=== PATIENT | female | born 1960 | race Caucasian/White ===

== ENCOUNTER 2017-01-27 22:13 | Observation (INO) | payer OTHER ==
--- NOTE | 2017-01-27 22:21 | EDPHY ---
H & P Stated Complaint: racing heart, palpitations x few hours HPI/ROS: HPI CHIEF COMPLAINT: Palpitations, racing heart since 730 this evening or 3 hours ago. HISTORY OF PRESENT ILLNESS: This patient is a 56-year-old female she is otherwise healthy she does not take any daily medications and she has no cardiovascular disease she presents to the emergency room with palpitations since 730 this evening. Patient reports to me that 7 there is evening she was not doing anything particular but resting and felt her heart rate become irregular. She states it was very irregular and is still ongoing. She does not report that was very fast she thinks the highest that she saw was 120s. But mainly in the 60s 70s. She denies shortness of breath or chest pain. Denies lightheadedness. Denies nausea, vomiting, neck pain, jaw pain, arm pain , focal weakness. 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 She usually is able to cough and have it go way. Past Medical History: Denies significant medical history. Does not take any daily medications. Past Surgical History: No recent surgery. But has previously had bilateral shoulder surgery. Social History: She denies daily drugs alcohol tobacco. Occasionally drinks wine. She has a chiropractor. She works out every day. Family History: She denies significant cardiovascular disease in her family. ROS REVIEW OF SYSTEMS: A comprehensive 10 point review of systems is otherwise negative aside from elements mentioned in the history of present illness. Exam Constitutional appears well nontoxic triage nursing summary reviewed, vital signs reviewed, awake/alert. Vital signs noted at triage. Eyes normal conjunctivae and sclera, EOMI, PERRLA. HENT normal inspection, atraumatic, moist mucus membranes, no epistaxis, neck supple/ no meningismus, no raccoon eyes. Respiratory clear to auscultation bilaterally, normal breath sounds, no respiratory distress, no wheezing. Cardiovascular she has an irregular, irregular heart rate rather fast, no murmur, no edema, distal pulses normal. Gastrointestinal soft, non-tender, no rebound, no guarding, normal bowel sounds, no distension, no pulsatile mass. Genitourinary no CVA tenderness. Musculoskeletal no midline vertebral tenderness, full range of motion, no calf swelling, no tenderness of extremities, no meningismus, good pulses, neurovascularly intact. Skin pink, warm, & dry, no rash, skin atraumatic. Neurologic awake, alert and oriented x 3, AAOx3, moves all 4 extremities equally, motor intact, sensory intact, CN II-XII intact, normal cerebellar, normal vision, normal speech. Psychiatric normal mood/affect. Heme/Lymph/Immune no lymphadenopathy. Differential diagnosis includes but is not limited to: Cardiac arrhythmia, AFib with RVR, atrial flutter, SVT, AVRNT, it V-tach, VFib, ACS, atypical chest pain, pneumothorax, pneumonia, pulmonary embolism, aortic dissection, congestive heart failure, tumor, musculoskeletal pain, esophageal pain, GERD, peptic ulcer disease, pancreatitis Medical Decision Making: Plan for this patient IV establishment with IV fluid bolus, obtain EKG, full monitor and storage bin tender, EKG, chest x-ray, check electrolytes including Mag and TSH. Re-evaluation: EKG interpretation by me on record in [employer] system. Impression time of EKG 2230 this is AFib rate of 133. Her AFib with RVR, borderline T-wave abnormality seen in the inferior leads this may be rate related. 2242: I did try vagal maneuver at bedside with the patient however this did not cause any reduction of her heart rate in fact her heart rate went to 170s when we were doing this. Currently this time she denies chest pain. 2338: I spoke with the hospitalist service Dr. Burrows he agrees to admit this patient. Patient be admitted to PCU on IV diltiazem drip. I have ordered her additionally some Ativan and she feels anxious. 0.5 mg IV additionally I have ordered her Lovenox 1 milligram/kilogram for anticoagulation the setting of AFib. She is hemodynamically stable she is not hypotensive. She has no chest pain. EKG interpretation by me on record in [employer] system. Impression time of EKG 05/26/2054, AFib rate of 120. Source: Patient - Personal History Current Tetanus/Diphtheria Vaccine: Yes - Medical/Surgical History Hx Asthma: No Hx Chronic Respiratory Disease: No Hx Diabetes: No Hx Cardiac Disease: No Hx Renal Disease: No Hx Cirrhosis: No Hx Alcoholism: No Hx HIV/AIDS: No Hx Splenectomy or Spleen Trauma: No Other PMH: SHOULDER SURGERY L/R. fx pelvis - Social History Smoking Status: Never smoked Constitutional: Initial Vital Signs Temperature (C) 36.6 C 01/27/17 22:15 Heart Rate 105 H 01/27/17 22:15 Respiratory Rate 18 01/27/17 22:15 Blood Pressure 116/48 L 01/27/17 22:15 O2 Sat (%) 96 01/27/17 22:15 O2 Delivery Mode Room Air Allergies/Adverse Reactions: BANDAID ADHESIVE Allergy (Uncoded 01/27/17 22:18) Home Medications: Medication Instructions Recorded NK [No Known Home Meds] 01/27/17 Medical Decision Making - Diagnostics Imaging Results: Imaging Impressions Chest X-Ray 01/27/17 22:26 Impression: No acute findings in the chest. - Data Points Laboratory Results: Laboratory Results 01/27/17 22:42 01/27/17 22:42 01/27/17 01/27/17 01/27/17 22:42 22:42 22:42 WBC 5.85 10^3/uL 10^3/uL (3.80-9.50) RBC 4.23 10^6/uL 10^6/uL (4.18-5.33) Hgb 15.0 g/dL g/dL (12.6-16.3) Hct 41.4 % % (38.0-47.0) MCV 97.9 fL fL (81.5-99.8) MCH 35.5 pg H pg (27.9-34.1) MCHC 36.2 g/dL g/dL (32.4-36.7) RDW 12.3 % % (11.5-15.2) Plt Count 221 10^3/uL 10^3/uL (150-400) MPV 9.0 fL fL (8.7-11.7) Neut % (Auto) 51.1 % % (39.3-74.2) Lymph % (Auto) 37.6 % % (15.0-45.0) [place] % (Auto) 9.7 % % (4.5-13.0) Eos % (Auto) 0.7 % % (0.6-7.6) Baso % (Auto) 0.7 % % (0.3-1.7) Nucleat RBC Rel Count 0.0 % % (0.0-0.2) Absolute Neuts (auto) 2.99 10^3/uL 10^3/uL (1.70-6.50) Absolute Lymphs (auto) 2.20 10^3/uL 10^3/uL (1.00-3.00) Absolute Monos (auto) 0.57 10^3/uL 10^3/uL (0.30-0.80) Absolute Eos (auto) 0.04 10^3/uL 10^3/uL (0.03-0.40) Absolute Basos (auto) 0.04 10^3/uL 10^3/uL (0.02-0.10) Absolute Nucleated RBC 0.00 10^3/uL 10^3/uL (0-0.01) Immature Gran % 0.2 % % (0.0-1.1) Immature Gran # 0.01 10^3/uL 10^3/uL (0.00-0.10) PT 13.1 SEC SEC (12.0-15.0) INR 1.00 (0.83-1.16) APTT 25.7 SEC SEC (23.0-38.0) D-Dimer < 0.27 ug/mLFEU ug/mLFEU (0.00-0.50) Sodium 140 mEq/L mEq/L (134-144) Potassium 3.8 mEq/L mEq/L (3.5-5.2) Chloride 105 mEq/L mEq/L (97-110) Carbon Dioxide 22 mEq/l mEq/l (22-31) Anion Gap 13 mEq/L mEq/L (8-16) BUN 17 mg/dL mg/dL (7-23) Creatinine 0.7 mg/dL mg/dL (0.6-1.0) Estimated GFR > 60 Glucose 81 mg/dL mg/dL (70-100) Calcium 9.7 mg/dL mg/dL (8.5-10.4) Magnesium 2.1 mg/dL mg/dL (1.6-2.3) Total Bilirubin 0.3 mg/dL mg/dL (0.1-1.4) Conjugated Bilirubin 0.0 mg/dL mg/dL (0.0-0.5) Unconjugated Bilirubin 0.3 mg/dL mg/dL (0.0-1.1) AST 29 IU/L IU/L (14-46) ALT 33 IU/L IU/L (9-52) Alkaline Phosphatase 46 IU/L IU/L (38-126) Troponin I < 0.012 ng/mL ng/mL (0.000-0.034) NT-Pro-B Natriuret Pep 117 pg/mL pg/mL (0-125) Total Protein 6.6 g/dL g/dL (6.3-8.2) Albumin 4.4 g/dL g/dL (3.5-5.0) TSH 1.850 uIU/mL uIU/mL (0.465-4.680) Medications Given: Discontinued Medications Diltiazem HCl (Cardizem 25 Mg/5 Ml Vial) 15 mg IVP EDNOW ONE Stop: 01/27/17 22:42 Last Admin: 01/27/17 22:46 Dose: 15 mg Enoxaparin Sodium (Lovenox) 60 mg SC EDNOW ONE Stop: 01/27/17 23:39 Last Admin: 01/28/17 00:20 Dose: 60 mg Sodium Chloride (Ns) 1,000 mls @ 0 mls/hr IV EDNOW ONE; Wide Open PRN Reason: Protocol Stop: 01/27/17 22:27 Last Admin: 01/27/17 22:46 Dose: 1,000 mls Diltiazem/Dextrose (Diltiazem 125mg/125ml (Premix)) 125 mls @ 0 mls/hr IV CONT PAVEL; Per Protocol PRN Reason: Protocol Stop: 07/26/17 22:44 Last Admin: 01/27/17 23:32 Dose: 125 mls Lorazepam (Ativan Injection) 0.5 mg IVP EDNOW ONE Stop: 01/27/17 23:39 Last Admin: 01/27/17 23:48 Dose: 0.5 mg Departure - Departure Disposition: [facility] Clinical Impression: Atrial fibrillation Qualifiers: Atrial fibrillation type: paroxysmal Qualified Code(s): I48.0 - Paroxysmal atrial fibrillation Condition: Fair
[2017-01-27] MEDS ORDERED: NS 1,000 ML IV ONE (22:26)
--- NOTE | 2017-01-27 22:33 | CPEKG ---
Heart Rate: 133 RR Interval: 451 QRSD Interval: 74 QT Interval: 320 QTC Interval: 476 QRS [place]: 59 T Wave [place]: -28 EKG Severity - ABNORMAL ECG - EKG Impression: ATRIAL FIBRILLATION EKG Impression: BORDERLINE T ABNORMALITIES, INFERIOR LEADS Electronically Signed By: Oscar Chanel 28-Jan-2017 06:23:00
[2017-01-27] MEDS ORDERED: DILTIAZEM 25 MG/5 ML VIAL IVP ONE (22:41)
[2017-01-27] MEDS ORDERED: DILTIAZEM 125 MG in D5W 125 ML IV SCH (22:45)
[2017-01-27 22:47] LABS: % IMMATURE GRANULYOCYTES 0.2 % (0.0-1.1); ABSOLUTE IMMATURE GRANULOCYTES 0.01 10^3/uL (0.00-0.10); ADD DIFF? NO; ADD MORPH? NO; ADD SCAN? NO; ATYPICAL LYMPHOCYTE FLAG 0 (0-99); FRAGMENT RBC FLAG 0 (0-99); HEMATOCRIT 41.4 % (38.0-47.0); LEFT SHIFT FLG 0 (0-99); LIPEMIA HEMOLYSIS FLAG 90 (0-99); MEAN CELL HEMOGLOBIN 35.5 pg (27.9-34.1); MEAN CELL HEMOGLOBIN CONCENTR. 36.2 g/dL (32.4-36.7); MEAN CELL VOLUME 97.9 fL (81.5-99.8); PLATELET CLUMPS FLAG 0 (0-99); PLATELET COUNT 221 10^3/uL (150-400); RED BLOOD CELL COUNT 4.23 10^6/uL (4.18-5.33); RED CELL DISTRIBUTION WIDTH 12.3 % (11.5-15.2)
[2017-01-27 22:55] LABS: PROTIME(PATIENT) 13.1 SEC (12.0-15.0)
[2017-01-27 22:56] LABS: APTT 25.7 SEC (23.0-38.0)
[2017-01-27 23:16] LABS: ALANINE AMINOTRANSFERASE 33 IU/L (9-52); ALBUMIN 4.4 g/dL (3.5-5.0); ALKALINE PHOSPHATASE 46 IU/L (38-126); ANION GAP 13 mEq/L (8-16); ASPARTATE AMINOTRANSFERASE 29 IU/L (14-46); BILIRUBIN,TOTAL 0.3 mg/dL (0.1-1.4); BILIRUBIN-UNCONJUGATED 0.3 mg/dL (0.0-1.1); CALCIUM 9.7 mg/dL (8.5-10.4); CARBON DIOXIDE 22 mEq/l (22-31); CHLORIDE 105 mEq/L (97-110); CREATININE 0.7 mg/dL (0.6-1.0); GLOMERULAR FILTRATION RATE > 60; GLUCOSE 81 mg/dL (70-100); MAGNESIUM 2.1 mg/dL (1.6-2.3); POTASSIUM 3.8 mEq/L (3.5-5.2); SODIUM 140 mEq/L (134-144); TOTAL PROTEIN 6.6 g/dL (6.3-8.2)
[2017-01-27 23:27] LABS: TROPONIN I < 0.012 ng/mL (0.000-0.034)
[2017-01-27] MEDS ORDERED: DILTIAZEM HCL/D5W 125 ML IV SCH ×2 (23:30→23:45)
[2017-01-27] MEDS ORDERED: ONDANSETRON 4 MG/2 ML VIAL IVP PRN (23:38)
[2017-01-27] MEDS ORDERED: ENOXAPARIN 60 MG/0.6 ML SYR SC ONE (23:38)
[2017-01-27] MEDS ORDERED: ONDANSETRON DISINTEGRATING 4 MG TAB PO PRN (23:38)
[2017-01-27] MEDS ORDERED: LORazepam 2 MG/ML INJ IVP ONE (23:38)
[2017-01-27] MEDS ORDERED: ACETAMINOPHEN 325 MG TAB PO PRN (23:38)
--- NOTE | 2017-01-27 23:58 | CPEKG ---
Heart Rate: 120 RR Interval: 500 QRSD Interval: 76 QT Interval: 332 QTC Interval: 470 QRS [place]: 59 T Wave [place]: 37 EKG Severity - ABNORMAL ECG - EKG Impression: ATRIAL FIBRILLATION Electronically Signed By: Oscar Chanel 28-Jan-2017 06:23:00
--- NOTE | 2017-01-28 01:22 | PDGENHP ---
History and Physical - Chief Complaint Palpitations - History of Present Illness 56 yo F w/ no PMHx presents with palpitations. Patient states that starting around 7 PM she began to notice palpitations, elevated HR, and chest discomfort. This has persisted until the time of my evaluation and patient was noted to be in AF w/ RVR upon arrival. She describes experiencing isolated palpitations in the past for a few beats at a time but never in a sustained fashion. She has been under a lot of stress for the last several months but denies recent illness, shortness of breath, or excessive ETOH intake. She has a significant family hx of AF w/ 4 family members having the same diagnosis. History Information - Allergies/Home Medication List Allergies/Adverse Reactions: BANDAID ADHESIVE Allergy (Uncoded 01/27/17 22:18) Home Medications: NK [No Known Home Meds] 01/27/17 [Last Taken Unknown] I have personally reviewed and updated: family history, medical history - Past Medical History no pertinent PMH - Family History Additional family history: Multiple family members with AF. Father w/ VT - Social History Smoking Status: Never smoked Review of Systems Review of Systems: ROS: 10pt was reviewed & negative except for what was stated in HPI & below Physical Exam Physical Exam: Temp Pulse Resp BP Pulse Ox 36.8 C 110 H 15 93/70 L 97 01/28/17 00:29 01/28/17 00:29 01/28/17 00:29 01/28/17 00:29 01/28/17 00:29 Constitutional: no apparent distress, not in pain Eyes: PERRL, EOMI Ears, Nose, Mouth, Throat: moist mucous membranes, no oral mucosal ulcers Cardiovascular: no murmur, rub, or gallop, irregularly irregular, tachycardia Respiratory: no respiratory distress, no rales or rhonchi Gastrointestinal: normoactive bowel sounds, soft, non-tender abdomen Skin: warm, normal color Musculoskeletal: full muscle strength, no muscle tenderness Neurologic: AAOx3, CN II-XII Intact Lab Data & Imaging Review 01/27/17 22:42 01/27/17 22:42 WBC 5.85 10^3/uL (3.80-9.50) 01/27/17 22:42 RBC 4.23 10^6/uL (4.18-5.33) 01/27/17 22:42 Hgb 15.0 g/dL (12.6-16.3) 01/27/17 22:42 Hct 41.4 % (38.0-47.0) 01/27/17 22:42 MCV 97.9 fL (81.5-99.8) 01/27/17 22:42 MCH 35.5 pg (27.9-34.1) H 01/27/17 22:42 MCHC 36.2 g/dL (32.4-36.7) 01/27/17 22:42 RDW 12.3 % (11.5-15.2) 01/27/17 22:42 Plt Count 221 10^3/uL (150-400) 01/27/17 22:42 MPV 9.0 fL (8.7-11.7) 01/27/17 22:42 Neut % (Auto) 51.1 % (39.3-74.2) 01/27/17 22:42 Lymph % (Auto) 37.6 % (15.0-45.0) 01/27/17 22:42 [place] % (Auto) 9.7 % (4.5-13.0) 01/27/17 22:42 Eos % (Auto) 0.7 % (0.6-7.6) 01/27/17 22:42 Baso % (Auto) 0.7 % (0.3-1.7) 01/27/17 22:42 Nucleat RBC Rel Count 0.0 % (0.0-0.2) 01/27/17 22:42 Absolute Neuts (auto) 2.99 10^3/uL (1.70-6.50) 01/27/17 22:42 Absolute Lymphs (auto) 2.20 10^3/uL (1.00-3.00) 01/27/17 22:42 Absolute Monos (auto) 0.57 10^3/uL (0.30-0.80) 01/27/17 22:42 Absolute Eos (auto) 0.04 10^3/uL (0.03-0.40) 01/27/17 22:42 Absolute Basos (auto) 0.04 10^3/uL (0.02-0.10) 01/27/17 22:42 Absolute Nucleated RBC 0.00 10^3/uL (0-0.01) 01/27/17 22:42 Immature Gran % 0.2 % (0.0-1.1) 01/27/17 22:42 Immature Gran # 0.01 10^3/uL (0.00-0.10) 01/27/17 22:42 PT 13.1 SEC (12.0-15.0) 01/27/17 22:42 INR 1.00 (0.83-1.16) 01/27/17 22:42 APTT 25.7 SEC (23.0-38.0) 01/27/17 22:42 D-Dimer < 0.27 ug/mLFEU (0.00-0.50) 01/27/17 22:42 Sodium 140 mEq/L (134-144) 01/27/17 22:42 Potassium 3.8 mEq/L (3.5-5.2) 01/27/17 22:42 Chloride 105 mEq/L (97-110) 01/27/17 22:42 Carbon Dioxide 22 mEq/l (22-31) 01/27/17 22:42 Anion Gap 13 mEq/L (8-16) 01/27/17 22:42 BUN 17 mg/dL (7-23) 01/27/17 22:42 Creatinine 0.7 mg/dL (0.6-1.0) 01/27/17 22:42 Estimated GFR > 60 01/27/17 22:42 Glucose 81 mg/dL (70-100) 01/27/17 22:42 Calcium 9.7 mg/dL (8.5-10.4) 01/27/17 22:42 Magnesium 2.1 mg/dL (1.6-2.3) 01/27/17 22:42 Total Bilirubin 0.3 mg/dL (0.1-1.4) 01/27/17 22:42 Conjugated Bilirubin 0.0 mg/dL (0.0-0.5) 01/27/17 22:42 Unconjugated Bilirubin 0.3 mg/dL (0.0-1.1) 01/27/17 22:42 AST 29 IU/L (14-46) 01/27/17 22:42 ALT 33 IU/L (9-52) 01/27/17 22:42 Alkaline Phosphatase 46 IU/L (38-126) 01/27/17 22:42 Troponin I < 0.012 ng/mL (0.000-0.034) 01/27/17 22:42 NT-Pro-B Natriuret Pep 117 pg/mL (0-125) 01/27/17 22:42 Total Protein 6.6 g/dL (6.3-8.2) 01/27/17 22:42 Albumin 4.4 g/dL (3.5-5.0) 01/27/17 22:42 TSH 1.850 uIU/mL (0.465-4.680) 01/27/17 22:42 Visualized and Interpreted Chest x-ray results: Yes Chest X-Ray results: no infiltrate Visualized and Interpreted EKG results: Yes EKG additional interpertation: Afib w/ RVR Assessment & Plan Assessment: 56 yo F w/ no PMHx presents with new AF w/ RVR. Plan: 1. AF w/ RVR - New diagnosis; no clear trigger per history but with clear onset time of about 7 PM on 01/27. TSH WNL in ED. Patient describes a very strong family hx of atrial fibrillation. [id number] of 1 for female gender only. HR remains >120 after Diltiazem 15 mg IV x1 in ED. - Maintain on diltiazem gtt over night to control HR - TTE ordered for further evaluation - Consider daily ASA - Will consult cardiology to discuss cardioversion or rhythm control noting patient is very active and in excellent health Diet - Regular Code - Full Ppx - SCDs Dispo - Admit to observation status
[2017-01-28 04:03] LABS: ADD DIFF? NO; ADD MORPH? NO; ADD SCAN? NO; ATYPICAL LYMPHOCYTE FLAG 0 (0-99); FRAGMENT RBC FLAG 0 (0-99); HEMATOCRIT 37.2 % (38.0-47.0); HEMOGLOBIN 12.9 g/dL (12.6-16.3); LEFT SHIFT FLG 0 (0-99); LIPEMIA HEMOLYSIS FLAG 90 (0-99); MEAN CELL HEMOGLOBIN 34.4 pg (27.9-34.1); MEAN CELL HEMOGLOBIN CONCENTR. 34.7 g/dL (32.4-36.7); MEAN CELL VOLUME 99.2 fL (81.5-99.8); PLATELET CLUMPS FLAG 0 (0-99); PLATELET COUNT 212 10^3/uL (150-400); RED BLOOD CELL COUNT 3.75 10^6/uL (4.18-5.33); RED CELL DISTRIBUTION WIDTH 12.2 % (11.5-15.2)
[2017-01-28 04:42] LABS: ANION GAP 10 mEq/L (8-16); CALCIUM 8.7 mg/dL (8.5-10.4); CARBON DIOXIDE 23 mEq/l (22-31); CHLORIDE 108 mEq/L (97-110); CREATININE 0.7 mg/dL (0.6-1.0); GLOMERULAR FILTRATION RATE > 60; GLUCOSE 87 mg/dL (70-100); MAGNESIUM 2.1 mg/dL (1.6-2.3); POTASSIUM 4.2 mEq/L (3.5-5.2); SODIUM 141 mEq/L (134-144)
[2017-01-28 04:49] LABS: TROPONIN I < 0.012 ng/mL (0.000-0.034)
[2017-01-28 08:07] VITALS: RESP 16
[2017-01-28] MEDS ORDERED: PROGESTERONE,MICR 100 MG CAP PO SCH (10:30)
[2017-01-28 12:00] VITALS: TEMP 98.1; O2SAT 95
--- NOTE | 2017-01-28 12:21 | ASMTCMCOM ---
CM Note CM Note Notes: Chart reviewed. Patient admitted with afib. Living independently. No needs identified.discharge plan of care: home independent. CM available should needs arise. Date Signed: 01/28/2017 12:17 PM Electronically Signed By:Noemi Herman RN
[2017-01-28] MEDS ORDERED: LORazepam 0.5 MG TAB PO ONE (12:30)
[2017-01-28] MEDS ORDERED: ASPIRIN EC 325 MG TAB PO SCH (13:30)
[2017-01-28] MEDS ORDERED: METOPROLOL SUCCINATE XR 25 MG TAB PO SCH (13:30)
[2017-01-28 13:47] VITALS: BP 123/81; PULSE 77
--- NOTE | 2017-01-28 15:02 | ASDISCHSUM ---
Discharge Information Plan Status:Home with No Needs Medically Cleared to Leave:01/27/2017 Discharge Date:01/28/2017 02:05 PM D/C Disposition: ADT D/C Disposition:Home, Routine, Self-Care Projected Discharge Date:01/28/2017 12:00 AM Transportation at D/C: Discharge Delay Reason: Follow-Up Date:01/28/2017 12:00 AM Discharge Slot: Final Diagnosis: Placement Information Patient Contact Information Contact Name:BRENT Relationship: Address:[address] City:[place] Alternate Phone: State/Zip Code:[place] [address] Email: Financial Information Financial Class:[employer] Primary Plan Desc:ZOYA DUARTE O [facility] Primary Plan Number:[id number] Secondary Plan Desc: Secondary Plan Number: Assessment Information LACE LACE Length of stay for Answers: 1 day current admission Acuity / Level of Care Answers: Was the patient admitted to hospital via the emergency department? Yes: Emergency dept visits in Answers: 0 last 6 months Score: 4 Date Signed: 01/28/2017 12:15 PM Electronically Signed By:Noemi Herman RN [facility] CM Progress Note CM Note CM Note Notes: Chart reviewed. Patient admitted with afib. Living independently. No needs identified.discharge plan of care: home independent. CM available should needs arise. Date Signed: 01/28/2017 12:17 PM Electronically Signed By:Noemi Herman RN Intervention Information
--- NOTE | 2017-01-28 15:21 | ECHO ---
[email or web address] [address] [address] Main: [phone] Fax: Transthoracic Echocardiogram Name: KUNAL BALL MR#: [id number] Study Date: 01/28/2017 Study Time: 07:27 AM Date of : 1960 Age: 56 year(s) Height: 175.3 cm (69 in.) Weight: 56.25 kg (124 lb.) BSA: 1.69 m2 Gender: Female Examination: Echo Indication: Atrial Fibrillation Image Quality: Contrast: Requested by: Joo Tavera BP: 84 mmHg/58 mmHg Heart Rate: Rhythm: Indication: Atrial Fibrillation Procedure Staff Supervisor Fertilizer: Lore Pardo Reading Physician: Philip Alba Requesting Provider: Conclusions: Normal size left ventricle. No LV hypertrophy. Normal global systolic LV function. The ejection fraction is estimated to be 65-70 %. The left atrium is normal in size. The right atrium is mildly dilated. The mitral valve is normal in appearance and function. The aortic valve is normal in appearance and function. Trivial aortic valve regurgitation. The tricuspid valve is normal in appearance and function. Trivial to mild tricuspid valve regurgitation. Measurements: Chambers Valvular Assessment AV/MV Valvular Assessment TV/PV Normal Normal Normal Name Value Range Name Value Range Name Value Range Ao Norma (2D): 3.3 cm (1.4 cm-2.6 AV Vmax: 0.86 m/s (1 m/s-1.7 cm) m/s) IVSd (2D): 0.8 cm (0.6 cm-1.1 AV maxP mmHg ( - ) cm) MV E Vmax: 0.69 m/s ( - ) LVDd (2D): 4.4 cm (3.9 cm-5.3 MV A Vmax: 0.51 m/s ( - ) cm) MV E/A: 1.35 ( - ) LVDs (2D): 2.6 cm (2.1 cm-4 cm) LVPWd (2D): 0.7 cm ( - ) LVEF (MOD4): 71 % (>=55 %) EF Range: 65-70 % Continued Measurements: Chambers Valvular Assessment AV/MV Patient: KUNAL BALL Study Date: 01/28/2017 Page 1 of 2 07:27 AM Name Value Name Value LADs: 2.8 cm MV E' Septal: 0.08 m/s LADs Lon.6 cm MV E/E' Septal: 9.10 LA Area: 14.4 cm2 MV E/E' Lateral: 8.50 Findings: Left Ventricle: Normal size left ventricle. No LV hypertrophy. Normal global systolic LV function. The ejection fraction is estimated to be 65-70 %. No regional wall motion abnormality. Right Ventricle: Normal size right ventricle. Left Atrium: The left atrium is normal in size. 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 Right Atrium: The right atrium is mildly dilated. Mitral Valve: The mitral valve is normal in appearance and function. Aortic Valve: The aortic valve is normal in appearance and function. Trivial aortic valve regurgitation. Tricuspid Valve: The tricuspid valve is normal in appearance and function. Trivial to mild tricuspid valve regurgitation. Pulmonic Valve: Pulmonary valve not well visualized. Aorta: The aorta is normal. Pericardium: No pericardial effusion. (No Signature Object) Patient: KUNAL BALL Study Date: 01/28/2017 Page 2 of 2 07:27 AM [id number]
--- NOTE | 2017-01-28 15:42 | PDCONSULT ---
Maintenance Advisor Note: Initially, cardiology was asked to see the patient when atrial fibrillation was noted. Symptoms were appreciated last night, and early this morning, prior to her being seen by cardiology, the arrhythmia self terminated to normal sinus rhythm. Patient was without symptoms after conversion. An echocardiogram was ordered and revealed no pathology. In speaking with the patient, thyroid function testing have been followed and no pathology has been noted. Patient did report that there is ongoing stressors at home (work and family with father' s medical condition). Recommendations for patient to be discharged on lower dose of PO CCB (cardizem 30 mg twice per day) with close assessment of symptoms and blood pressure to ensure no dizziness. Would arrange for patient to be seen by cardiology in 1-2 weeks Patient was in agreement with these plans.
--- NOTE | 2017-01-28 16:46 | GDS ---
[f rep st] DISCHARGE SUMMARY DISCHARGE DIAGNOSIS: Paroxysmal atrial fibrillation. HISTORY: The patient is a 56-year-old female, who presented with severe palpitations. She presented to the hospital, was found to be in atrial fibrillation with rapid ventricular response. She was ad mitted under observation, and spontaneously converted back to a normal sinus rhythm without any need for intervention. Her echocardiogram was unremarkable. Her blood pressure runs on the low side, and she had difficulty tolerating diltiazem due to hypotension. Will prescribe a low-dose beta vinny at discharge. Her CHADS2-VASc is 1, and so I think aspirin will be adequate at this time. She will follow up closely with Cardiology for further management. DISCHARGE MEDICATIONS: Please see computer record for full detailed list. NEW MEDICATIONS: 1. Metoprolol-XL 25 mg p.o. daily. 2. Aspirin 325 mg p.o. daily. ADDITIONAL DISCHARGE INSTRUCTIONS: Follow up with Dr. Alba at [facility]. Patient was seen and examined by me on day of discharge. /[id number]
== END 2017-01-28 14:05 | disposition home or self-care (01) ==
LOC: F2W 01-28 00:21
PROVIDERS: ADMIT Student in an Organized Health Care Education/Training Program; ATTEND Internal Medicine
PROC: 3E0337Z Introduction of Electrolytic and Water Balance Substance into Peripheral Vein, Percutaneous Approach (ICD-10-PCS; principal; 2017-01-27)
DX: I48.0 Paroxysmal atrial fibrillation (principal); E86.9 Volume depletion, unspecified; Z82.49 Family history of ischemic heart disease and other diseases of the circulatory system
CPT/HCPCS: 71020; 93005; 93306; 96361; 96374; 96375; 99285; G0378; J1650; J2060